=== PATIENT | female | born 1975 | race African-American/Black ===

== ENCOUNTER 2020-01-04 17:20 | Inpatient (IN) | payer OTHER ==
[~2020-01-04] VITALS: Ht 172.7 cm; Wt 117.5 kg
[2020-01-04] MEDS ORDERED: ALBUTEROL2.5 MG/3 M INH (17:41)
--- NOTE | 2020-01-04 17:50 | NUR ---
ED Nurse Note: Pt walked into ED w/ c/o body aches, fever, wheezing, nausea and vomiting. Pt is not currently vomiting. Pt Pt lungs bilaterally iwheezing on exhalation. Pt is alert and orientedx4, ambulatory. Bilateral annkles have numbness.
[2020-01-04 17:52] VITALS: BP 127/71
[2020-01-04] MEDS: Albuterol ud Inhalation HHN SCH ×4 (18:55→19:45)
[2020-01-04 19:05] LABS: BASOPHILS % (AUTO) 0.8 % (0.0-2.0); EOSINOPHILS % (AUTO) 2.3 % (0.0-3.0); HEMATOCRIT 26.6 % (37.0-47.0); MEAN CORPUSCULAR VOLUME 69 FL (80-99); NEUTROPHILS % (AUTO) 81.9 % (45.0-75.0); PLATELET COUNT 485 K/UL (150-450); RED BLOOD COUNT 3.87 M/UL (4.20-5.40); WHITE BLOOD COUNT 7.5 K/UL (4.8-10.8)
[2020-01-04 19:17] LABS: ANION GAP 11 mmol/L (5-15); BLOOD UREA NITROGEN 9 mg/dL (7-18); CALCIUM 8.7 MG/DL (8.5-10.1); CARBON DIOXIDE 26 MMOL/L (21-32); CHLORIDE 102 MMOL/L (98-107); POTASSIUM 3.8 MMOL/L (3.5-5.1); SODIUM 139 MMOL/L (136-145)
[2020-01-04 19:28] LABS: ALANINE AMINOTRANSFERASE 21 U/L (12-78); ALBUMIN 3.9 G/DL (3.4-5.0); ALBUMIN/GLOBULIN RATIO 1.1 (1.0-2.7); ALKALINE PHOSPHATASE 102 U/L (46-116); ASPARTATE AMINO TRANSFERASE 15 U/L (15-37); BILIRUBIN,TOTAL 0.3 MG/DL (0.2-1.0)
--- NOTE | 2020-01-04 19:28 | NUR ---
ED Nurse Note: Received report from GRICEL Torres.
--- NOTE | 2020-01-04 19:35 | Emergency Room Report ---
History of Present Illness General Chief Complaint: Flu Like Symptoms Source: Patient Present Illness HPI 44-year-old female presents to the emergency department complaining of severe generalized weakness/fatigue, dyspnea, wheezing, fevers, chills and headache x2 days. Patient reports history of asthma states she has been using her albuterol inhaler with no relief and she is now out of that medication. Patient also reports today she began having paresthesias in the bilateral feet specifically the ankles which prompted her to come to the ER. She states she did not take any Tylenol, Motrin, ibuprofen, Advil or any other fever reducing medications prior to arrival. Patient states that she did not receive this years flu vaccine. Patient reports she had similar symptoms last year and was hospitalized for 14 days. She denies any other medical problems other than asthma. She is unable to detail specifically why she was hospitalized for 14 days. She denies nausea vomiting, abdominal pain or tenderness. She reports history of anemia and at one point had hemoglobin of 6 for which she refused having transfusion for. Patient states she was taking iron supplementation for a while but self DC'd. She denies neck pain/stiffness, photophobia or sudden onset of her headache. She reports she has been around other ill contacts with similar upper respiratory symptoms but not to this extent. Allergies: Coded Allergies: No Known Allergies (Unverified , 01/04/20) Patient History Past Medical History: see triage record, asthma Past Surgical History: none Pertinent Family History: none Last Menstrual Period: Nov, 2019 Now: No : 0 Para: 0 Reviewed Nursing Documentation: PMH: Agreed; PSxH: Agreed Nursing Documentation-PMH Past Medical History: No History, Except For Hx Asthma: Yes Review of Systems All Other Systems: negative except mentioned in HPI Physical Exam Vital Signs Date Time Temp Pulse Resp B/P (MAP) Pulse Ox O2 Delivery O2 Flow Rate FiO2 01/04/20 17:37 99.9 119 17 123/74 (90) 96 Room Air 01/04/20 17:52 96 Sp02 EP Interpretation: reviewed, normal General Appearance: alert, GCS 15, non-toxic, mild distress Head: normocephalic, atraumatic Eyes: bilateral eye normal inspection, bilateral eye PERRL ENT: hearing grossly normal, normal voice Neck: full range of motion Respiratory: chest non-tender, no accessory muscle use, speaking full sentences , wheezing - auditory Cardiovascular #1: regular rate, rhythm, no edema Cardiovascular #2: 2+ dorsalis pedis (R), 2+ dorsalis pedis (L) Gastrointestinal: non tender, soft Musculoskeletal: normal range of motion, gait/station normal, non-tender Neurologic: alert, motor strength/tone normal, oriented x3, sensory intact, responsive, speech normal Psychiatric: judgement/insight normal Skin: normal color Lymphatic: no adenopathy Medical Decision Making PA Attestation Dr. Murillo is my supervising Physician whom patient management has been discussed with. Diagnostic Impression: Primary Impression: Asthma exacerbation Qualified Codes: J45.41 - Moderate persistent asthma with (acute) exacerbation Additional Impressions: Acute viral syndrome Influenza A Anemia Qualified Codes: D64.9 - Anemia, unspecified ER Course 44-year-old female presents to the emergency department complaining of severe generalized weakness/fatigue, dyspnea, wheezing, fevers, chills and headache x2 days. Patient reports history of asthma states she has been using her albuterol inhaler with no relief and she is now out of that medication. Patient also reports today she began having paresthesias in the bilateral feet specifically the ankles which prompted her to come to the ER. She states she did not take any Tylenol, Motrin, ibuprofen, Advil or any other fever reducing medications prior to arrival. Patient states that she did not receive this years flu vaccine. Patient reports she had similar symptoms last year and was hospitalized for 14 days. She denies any other medical problems other than asthma. She is unable to detail specifically why she was hospitalized for 14 days. She denies nausea vomiting, abdominal pain or tenderness. She reports history of anemia and at one point had hemoglobin of 6 for which she refused having transfusion for. Patient states she was taking iron supplementation for a while but self DC'd. She denies neck pain/stiffness, photophobia or sudden onset of her headache. She reports she has been around other ill contacts with similar upper respiratory symptoms but not to this extent. Ddx considered but are not limited to asthma exacerbation, CHF, URI, pneumonia, PE, strep pharyngitis, Viral syndrome, meningitis. Vital signs: Pt. is tachycardic and febrile. H&PE are most consistent with URI, asthma exacerbation ORDERS: -CBC: hgb 8, thrombocytopenia -CMP: WNL -Troponin: 0.00 WNL -D-Dimer: elevated 0.78 - Influenza A & B : POSITIVE FOR TYPE A CXR: WNL -CTA Chest: " normal appearance aorta, no infiltrates or effusions, study not optimized for evaluation of all pulmonary arteries. No central filling defects however the possibility of small peripheral pulmonary emboli cannot be excluded. " Per official radiology report- Please see report for specific details. ED INTERVENTIONS: -1 Liter NS Bolus - Tylenol PO -Motrin PO Albuterol nebulized treatment x 4 - re-examination post nebulized treatment: Pt. still with auditory wheezes. DISPOSITION: at this time pt. will be admitted to Dr. Arguello for Asthma Exacerbation Dr. Arguello agreed to admit the pt. and to continue pt. care management. EKG Diagnostic Results EP Interpretation: Dr. Murillo Rate: tachycardiac - 100 Rhythm: NSR ST Segments: no acute changes ASA given to the pt in ED: No PA Scribe Text This Interpretation was scribed by ANDREW Fuentes. Chest X-Ray Diagnostic Results Chest X-Ray Diagnostic Results : Chest X-Ray Ordered: Yes # of Views/Limited/Complete: 1 View Indication: Shortness of Breath EP Interpretation: Yes PA Xray: Interpretation reviewed, by supervising MD, and agrees with findings. Interpretation: no consolidation, no effusion, no pneumothorax, no acute cardiopulmonary disease Impression: No acute disease Electronically Signed by: Marcella Fuentes PA-C CT/MRI/US Diagnostic Results CT/MRI/US Diagnostic Results : Imaging Test Ordered: CTA Chest w. contrast Impression " normal appearance aorta, no infiltrates or effusions, study not optimized for evaluation of all pulmonary arteries. No central filling defects however the possibility of small peripheral pulmonary emboli cannot be excluded." Per official radiology report- Please see report for specific details. Last Vital Signs Date Time Temp Pulse Resp B/P (MAP) Pulse Ox O2 Delivery O2 Flow Rate FiO2 01/04/20 19:02 98 20 98 Room Air 21 01/04/20 17:52 99.9 127/71 Disposition: ADMITTED INPATIENT Condition: Serious Referrals: [facility],REFERRING (PCP) Marcella Fuentes Jan 04, 2020 19:35
[2020-01-04] MEDS ORDERED: Omnipaque 350 100ml vial INJ PRN (19:45)
--- NOTE | 2020-01-04 19:49 | NUR ---
ED Nurse Note: Patient taken to CT in stable condition
--- NOTE | 2020-01-04 19:51 | Diagnostic Imaging Report ---
EXAM: XR Chest, 1 View CLINICAL HISTORY: PAIN TECHNIQUE: Frontal view of the chest. COMPARISON: No relevant prior studies available. FINDINGS: Lungs: Unremarkable. No consolidation. Pleural space: Unremarkable. No pneumothorax. Heart: Unremarkable. No cardiomegaly. Mediastinum: Unremarkable. Bones/joints: Unremarkable. IMPRESSION: Normal chest x-ray.
[2020-01-04 20:07] VITALS: BP 126/69
--- NOTE | 2020-01-04 20:07 | NUR ---
ED Nurse Note: Pt moved to bed 01; report received from GRICEL Miranda. All medications, lab work, and US complete; pending results. Pt HR elevated (129) BP 126/68. NO s/s of distress noted.
--- NOTE | 2020-01-04 20:07 | NUR ---
HAND-OFF: Report given to GRICEL Andrade.
--- NOTE | 2020-01-04 21:10 | Diagnostic Imaging Report ---
EXAM: CT Angiography Chest With Intravenous Contrast CLINICAL HISTORY: SOB TECHNIQUE: Axial computed tomographic angiography images of the chest with intravenous contrast. CTDI is 198.7 mGy and DLP is 1419.5 mGy-cm. One or more of the following dose reduction techniques were used: automated exposure control, adjustment of the mA and/or kV according to patient size, use of iterative reconstruction technique. MIP reconstructed images were created and reviewed. Coronal and sagittal reformatted images were created and reviewed. COMPARISON: No relevant prior studies available. FINDINGS: Pulmonary arteries: The study is not optimized for evaluation of pulmonary arteries no central filling defects are noted possibility of small distal pulmonary emboli cannot be excluded on this study Aorta: No acute findings. No thoracic aortic aneurysm. Lungs: Unremarkable. No mass. No consolidation. Pleural space: Unremarkable. No significant effusion. No pneumothorax. Heart: Unremarkable. No cardiomegaly. No significant pericardial effusion. No evidence of RV dysfunction. Bones/joints: No acute fracture. No dislocation. Soft tissues: Unremarkable. Lymph nodes: Unremarkable. No enlarged lymph nodes. IMPRESSION: Normal appearance to the aorta. No infiltrates or effusions. The study is not optimized for evaluation of pulmonary arteries. No central filling defects however the possibility of small peripheral pulmonary emboli cannot be excluded
[2020-01-04] MEDS ORDERED: Albuterol/Ipratropium 3ml neb HHN ONE (22:00)
--- NOTE | 2020-01-04 22:02 | NUR ---
Spoke with Sunshine at [facility]-states admit Tele OBS-registration notified.
[2020-01-04] MEDS ORDERED: Tubing IV Secondary IV ONE (22:03)
--- NOTE | 2020-01-04 22:15 | NUR ---
ED Nurse Note: Pt resting in bed, VSS no s/s of distress noted. Pt resting comfortably.
[2020-01-04 22:25] VITALS: BP 124/72
--- NOTE | 2020-01-04 23:07 | NUR ---
ED Nurse Note: report given to Shannon, Telemetry unit.
[2020-01-04 23:15] VITALS: BP 125/67
--- NOTE | 2020-01-04 23:15 | NUR ---
ER DISCHARGE NOTE: Patient is cleared to be discharged to Telemetry unit per ERMD, pt is aox4, on room air, with stable vital signs. pt was able to verbalize understanding, pt took all belongings. No s/s of distress noted. Pt transferred to telemetry unit with public address technician and RN on monitor, handoff to GRICEL Cartagena.
--- NOTE | 2020-01-04 23:24 | NUR ---
ED Nurse Note: Pt belongings list completed
[2020-01-04 23:40] VITALS: BP 133/63
--- NOTE | 2020-01-04 23:40 | NUR ---
NURSE NOTES: Received report from GRICEL Monique ED. Patient was transferred from ED to Tele via gurney accompanied by 2 staff member, without any incident. Patient is awake, A/Ox4, able to make needs known. Denies pain at this time. No signs of acute distress noted. Placed on tele box, ST on the monitor, 112 bpm. Checked IV site and flushed. No erythema, bleeding or infiltration noted. Body assessment done without any skin issues. Bed at lowest position, brakes on, siderailsx2. Belongings list checked with transferring RN. Patient has bills $20 x 1, $5 x 1, $1 x 3. Patient doesn't want her money to be placed on hospital's safety box. CN and fire supervisor made aware. Call light within reach. Will continue to monitor.
[2020-01-05] MEDS ORDERED: Albuterol ud Inhalation HHN PRN (00:15)
--- NOTE | 2020-01-05 00:15 | NUR ---
NURSE NOTES: Received admitting orders from Dr. Arguello. Noted and carried out.
[2020-01-05] MEDS ORDERED: cefTRIAXone 1 GM in D5W 55 ML IVPB SCH (02:00)
--- NOTE | 2020-01-05 02:51 | NUR ---
NURSE NOTES: Resting throughout the night. No significant change of condition noted. Will continue to monitor.
[2020-01-05] MEDS: Albuterol/Ipratropium 3ml neb HHN SCH ×6 (03:24→23:47)
[2020-01-05 04:00] VITALS: BP 113/66
--- NOTE | 2020-01-05 05:52 | NUR ---
NURSE NOTES: Notified Dr. Arguello of patient's (+) for Influenza A. Addendum: 01/05/20 at 0556 by Mitzi Pate RN Placed on droplet isolation. Charge nurse made aware.
--- NOTE | 2020-01-05 07:10 | NUR ---
HAND-OFF: Report given to GRICEL Murillo. Plan of care endorsed.
[2020-01-05 08:00] VITALS: BP 126/89
[2020-01-05] MEDS ORDERED: Solu-MEDROL 40mg Inj IVP SCH (09:00)
[2020-01-05] MEDS: Oseltamivir 75mg cap ORAL SCH ×2 (11:12→18:49)
--- NOTE | 2020-01-05 14:00 | Infectious Diseases Prog Note ---
Assessment/Plan Problems: (1) Influenza A Assessment & Plan: continue tamiflu for five days with droplets isolation (2) Bronchitis with acute wheezing Assessment & Plan: will continue ceftriaxone and add vancomycin pending cultures for now , and order sputum culture (3) Sepsis Assessment & Plan: with high fever, suspect due to the above, on vancomycin and ceftriaxone pending cultures (4) Asthma exacerbation Assessment & Plan: due to the above, continue nebulizers and oxygen , stop steroids Subjective Allergies: Coded Allergies: No Known Allergies (Unverified , 01/04/20) Objective Vital Signs Last 24 Hour Vital Signs Date Time Temp Pulse Resp B/P (MAP) Pulse Ox O2 Delivery O2 Flow Rate FiO2 01/05/20 12:00 117 01/05/20 11:45 85 20 99 Nasal Cannula 2.0 28 82 20 99 01/05/20 08:13 83 20 100 Nasal Cannula 2.0 28 85 20 100 01/05/20 08:00 80 01/05/20 08:00 97.3 91 16 126/89 (101) 100 01/05/20 04:00 76 01/05/20 04:00 97.3 65 20 113/66 (82) 100 01/05/20 03:24 76 18 99 Nasal Cannula 2.0 28 73 18 97 01/05/20 00:53 Room Air 01/05/20 00:00 146 01/04/20 23:40 112 01/04/20 23:40 99.5 111 21 133/63 (86) 99 01/04/20 23:15 101.1 110 20 125/67 100 Room Air 21 01/04/20 23:15 101.1 110 22 125/67 100 Room Air 21 01/04/20 22:25 101.7 115 22 124/72 100 Room Air 21 01/04/20 22:16 112 22 100 01/04/20 22:04 105 21 100 Room Air 21 01/04/20 21:49 101.7 01/04/20 21:49 101.7 01/04/20 20:07 99.9 126 20 126/69 100 Room Air 21 01/04/20 19:45 132 20 100 01/04/20 19:02 98 20 98 Room Air 21 01/04/20 17:52 121 18 Room Air 96 01/04/20 17:52 99.9 20 127/71 95 Room Air 01/04/20 17:37 99.9 119 17 123/74 (90) 96 Room Air Height (Feet): 5 Height (Inches): 8.00 Weight (Pounds): 259 Microbiology Date/Time Source Procedure Growth Status 01/04/20 22:09 Nasal Nares - Final Complete 01/04/20 22:09 Nasal Nares - Final Complete Laboratory Tests Test 01/04/20 18:49 White Blood Count 7.5 K/UL (4.8-10.8) Red Blood Count 3.87 M/UL (4.20-5.40) L Hemoglobin 8.0 G/DL (12.0-16.0) L Hematocrit 26.6 % (37.0-47.0) L Mean Corpuscular Volume 69 FL (80-99) L Mean Corpuscular Hemoglobin 20.7 PG (27.0-31.0) L Mean Corpuscular Hemoglobin Concent 30.2 G/DL (32.0-36.0) L Red Cell Distribution Width 17.0 % (11.6-14.8) H Platelet Count 485 K/UL (150-450) H Mean Platelet Volume 6.7 FL (6.5-10.1) Neutrophils (%) (Auto) 81.9 % (45.0-75.0) H Lymphocytes (%) (Auto) 9.0 % (20.0-45.0) L Monocytes (%) (Auto) 6.0 % (1.0-10.0) Eosinophils (%) (Auto) 2.3 % (0.0-3.0) Basophils (%) (Auto) 0.8 % (0.0-2.0) D-Dimer 0.78 mg/L FEU (0.00-0.49) H Sodium Level 139 MMOL/L (136-145) Potassium Level 3.8 MMOL/L (3.5-5.1) Chloride Level 102 MMOL/L (98-107) Carbon Dioxide Level 26 MMOL/L (21-32) Anion Gap 11 mmol/L (5-15) Blood Urea Nitrogen 9 mg/dL (7-18) Creatinine 1.0 MG/DL (0.55-1.30) Estimat Glomerular Filtration Rate > 60 mL/min (>60) Glucose Level 119 MG/DL (74-106) H Calcium Level 8.7 MG/DL (8.5-10.1) Total Bilirubin 0.3 MG/DL (0.2-1.0) Aspartate Amino Transf (AST/SGOT) 15 U/L (15-37) Alanine Aminotransferase (ALT/SGPT) 21 U/L (12-78) Alkaline Phosphatase 102 U/L (46-116) Troponin I 0.000 ng/mL (0.000-0.056) Pro-B-Type Natriuretic Peptide 116 pg/mL (0-125) Total Protein 7.6 G/DL (6.4-8.2) Albumin 3.9 G/DL (3.4-5.0) Globulin 3.7 g/dL Albumin/Globulin Ratio 1.1 (1.0-2.7) Current Medications Medications (Trade) Dose Ordered Sig/Roman Route PRN Reason Start Time Stop Time Status Last Admin Dose Admin Acetaminophen (Tylenol) 650 mg Q4H PRN ORAL Mild Pain/Temp > 100.5 01/05/20 00:15 02/04/20 00:14 Albuterol Sulfate (Proventil) 2.5 mg Q4H PRN HHN Shortness of Breath 01/05/20 00:15 01/10/20 00:14 Albuterol/ Ipratropium (Albuterol/ Ipratropium) 3 ml Q4HRT HHN 01/05/20 03:00 01/10/20 02:59 01/05/20 11:45 Iohexol (Omnipaque) 100 mg NOW PRN INJ Radiology Procedure 01/04/20 19:45 01/06/20 19:35 Oseltamivir Phosphate (Tamiflu) 75 mg TWICE A DAY ORAL 01/05/20 10:15 01/10/20 10:14 01/05/20 11:12 Kirsten Benedict M.D. Jan 05, 2020 14:00
[2020-01-05] MEDS ORDERED: Vancomycin 1.5gm/NS Premix IVPB ONE (15:00)
--- NOTE | 2020-01-05 15:15 | History and Physical Report ---
DATE OF ADMISSION: 01/04/2020 HISTORY OF PRESENT ILLNESS: This is a 44-year-old female overweight came to the emergency room for having short of breath, fever and chills for about last 4 to 5 days and the patient was having cough with mucus production, also had fever at home. The patient was found to have influenza positive. The patient is currently still having cough, but is improving. PAST MEDICAL HISTORY: Asthma, comorbid obesity. MEDICATIONS: Albuterol inhaler. ALLERGIES: NKA. FAMILY HISTORY: Noncontributory. SOCIAL HISTORY: Lives at home. Denies any smoking. She quit smoking about 2 years ago. Denies any illegal drugs. REVIEW OF SYSTEMS: Generalized weakness, tired, fatigue, cough with sputum production, mild to moderate short of breath on exertion, and weight gain. PHYSICAL EXAMINATION: VITAL SIGNS: Blood pressure is , pulse 91, respirations 16, saturation 100%, temperature 97.3. HEENT: AT/NC. EOMI. PERRLA. NECK: Supple. No JVD. CHEST: Bilateral few crackles. CARDIOVASCULAR: Regular rhythm. No gallop. No murmur. ABDOMEN: Soft. Positive bowel sounds. EXTREMITIES: No edema. GENITOURINARY: Deferred. LABORATORY AND DIAGNOSTIC DATA: White count 7.5, hemoglobin 8, hematocrit 29, platelets are 485,000. Chemistry panel, sodium 139, potassium 3.8, BUN 9, creatinine 0.1. Troponins are negative. BNP was 116. Cultures are so far pending. CT of chest is negative for PE. Chest x-ray normal. ASSESSMENT: 1. Acute chronic obstructive pulmonary disease exacerbation. 2. H. influenza. PLAN: Admit on telemetry bed. Start IV antibiotics, IV steroid, bronchodilator treatments, and also add Tamiflu. Continue DuoNeb. Discussed with charge nurse. Consider Pulmonary consult. Edmundo Arguello M.D. DR: Desire JOB#: [id number] CC:
[2020-01-05] MEDS: cefTRIAXone 2 GM in D5W 55 ML IVPB SCH (16:28)
--- NOTE | 2020-01-05 16:45 | Consultation ---
DATE OF CONSULTATION: 01/05/2020 INFECTIOUS DISEASES CONSULTATION CONSULTING PHYSICIAN: Khai Bravo M.D. PRIMARY ATTENDING PHYSICIAN: Edmundo Arguello AM.D. REASON FOR CONSULTATION: Sepsis and influenza A. HISTORY OF PRESENT ILLNESS: The patient is a 44-year-old female admitted last night because of weakness, fever, fatigue, difficulty of breathing, chills, headache for two days. The symptoms become progressively worse. The patient had fever up to 101.7 in hospital and heart rate up to 146. PAST MEDICAL HISTORY: Anemia for long time, asthma, obesity. The patient has a history of admission to hospital two years ago for asthma. PAST SURGICAL HISTORY: Had . ALLERGIES: No known drug allergies. MEDICATIONS: Tamiflu, methylprednisone, albuterol ipratropium inhaler, ceftriaxone. SOCIAL HISTORY: Single, has two children. Does not smoke. Does not drink. No IV drug abuse. REVIEW OF SYSTEMS: Fever, chills, shortness of breath, coughing, body pain, fatigue. No nausea. No vomiting. No problem passing urine. PHYSICAL EXAMINATION: VITAL SIGNS: Current temperature 97.3, pulse 83, blood pressure 126/89. GENERAL APPEARANCE: The patient is well developed, obese. HEAD AND NECK: [place] conjunctivae. Getting oxygen by nasal cannula. HEART: Normal rate. LUNGS: Bilateral wheezing. ABDOMEN: Soft and nontender. EXTREMITIES: No edema. NEUROLOGIC: Awake, alert, oriented x3. LABORATORY AND DIAGNOSTIC DATA: WBC 7.5, hemoglobin 8, hematocrit 26.6, and platelets is 485. Sodium 139, potassium 3.8, chloride 102, bicarbonate 26, BUN 19, creatinine 1, glucose 119. LFTs within normal limits. Influenza A was positive. Chest x-ray was normal. CT angiogram of the chest showed no pulmonary emboli, no effusion or infiltrate. IMPRESSION: Sepsis with fever and tachycardia, seems to have influenza A, upper respiratory infection, asthma exacerbation, anemia, obesity. RECOMMENDATION: Continue Tamiflu and ceftriaxone. If the patient remain stable, stop ceftriaxone soon. At the time of discharge, we will give the patient influenza vaccination and pneumococcal vaccination. At the end of my exam, I thank Dr. Arguello, for involving me in the care of this patient. Khai Bravo M.D. DR: Marisol JOB#: [id number] CC:
--- NOTE | 2020-01-05 17:45 | Consultation ---
DATE OF CONSULTATION: 01/05/2020 PULMONARY CONSULTATION CONSULTING PHYSICIAN: Ferny Mazariegos M.D. HISTORY OF PRESENT ILLNESS: This is a 44-year-old female who came to the hospital with cough, wheezing, shortness of breath, and headache. The patient has a history of asthma, however, not on medications. The patient has not received flu vaccine. She is admitted to the hospital for exacerbation of asthma. PAST MEDICAL HISTORY: Asthma. PAST SURGICAL HISTORY: None. HOME MEDICATIONS/CURRENT MEDICATIONS: Include Rocephin, DuoNebs, Motrin, Solu-Medrol, and Tamiflu. ALLERGIES: None reported. REVIEW OF SYSTEMS: Denies any headaches, hematemesis, melena, or hematochezia. PHYSICAL EXAMINATION: GENERAL: Reveals an obese 44-year-old female. VITAL SIGNS: O2 saturation 99% on 2 L of oxygen, blood pressure 120/80, heart rate 94. She is afebrile HEENT: Unremarkable. CHEST: Shows a few rhonchi bilaterally. ABDOMEN: Soft. EXTREMITIES: There is no edema. LABORATORY TESTING: Shows normal CBC except for hemoglobin of 8. Chemistries are normal. Troponin negative. Coags negative. CT of the chest was obtained, which shows clear lung alexander bilaterally. There was no major PE is noted. X-ray chest was also obtained, which showed clear lung alexander bilaterally. IMPRESSION: 1. Acute influenza, bronchitis. 2. Asthma. DISCUSSION: Agree with steroids, empiric antibiotics, and Tamiflu. Order oxygen. We will follow carefully. Ferny Mazariegos M.D. DR: DARREN JOB#: [id number] CC:
--- NOTE | 2020-01-05 19:15 | NUR ---
NURSE NOTES: Received report from GRICEL Johns. Patient is awake, lying in zaman's; resting comfortably. A/Ox4. Able to make needs known. Denies pain at this time. No signs of acute distress noted. Checked IV site and flushed. No erythema, bleeding or infiltration noted. Bed at lowest position, brakes on, siderailsx2. Call light within reach. Will continue to monitor.
--- NOTE | 2020-01-05 19:52 | NUR ---
HAND-OFF: Report given to GRICEL Cartagena. Patient sitting up in bed, awake and alert, watching television, no c/o pain, no SOB, oxygen at 2 liters nasal cannula, bed in lowest position, call light within reach, IV patent in left antecubital 20 gauge running antibiotics.
[2020-01-05 20:00] VITALS: BP 118/68
--- NOTE | 2020-01-05 20:00 | Consultation ---
DATE OF CONSULTATION: 01/05/2020 INFECTIOUS DISEASE CONSULTATION CONSULTING PHYSICIAN: Kirsten Benedict M.D. REFERRING PHYSICIAN: Melvin Arguello M.D. REASON FOR CONSULTATION: Influenza A infection with bronchitis and possible sepsis. Recommendation for antibiotics treatment. HISTORY OF PRESENT ILLNESS: The patient is a 44-year-old female with past medical history of asthma, presented to the emergency room at [facility] for fever, cough, generalized weakness, wheezing, and chills for the last two days. The patient's symptoms started with fatigue and generalized weakness then chills. She had dry cough first then became productive of greenish phlegm. Her asthma kicked in after that and she was having more wheezing and shortness of breath. She utilized all of her albuterol inhaler at home with no significant improvement. She was getting numbness also on her feet, so she was brought into the emergency room for further evaluation. The patient was found to be febrile with temperature of 101. She was tachypneic and wheezing, received nebulizer treatment and steroid IV, and she tested positive for influenza A, so she was subsequently started on Tamiflu and ceftriaxone by the admitting physician with IV steroid, and Infectious Disease consultation was requested for antibiotics treatment and further management. The patient denied any recent travel or sick contacts over the last 14 days. REVIEW OF SYSTEMS: A 14-point of systems reviewed were all negative apart from the one I mentioned above in my History and Physical. PAST MEDICAL HISTORY: Significant for asthma. PAST SURGICAL HISTORY: Negative. SOCIAL HISTORY: The patient lives at home with family. Denied using any drugs, tobacco, or alcohol. She is a former smoker. ALLERGIES: She has no known drug allergies. MEDICATIONS: Currently, she is on Tamiflu, ceftriaxone, and IV methylprednisolone. For the rest of her medications, please refer to MAR. PHYSICAL EXAMINATION: VITAL SIGNS: Temperature 97.3, pulse 91, respirations 16, and blood pressure 126/89. Saturation 100% on nasal cannula 2 L. GENERAL: Young female, morbidly obese, lying in bed, awake, alert, and oriented x3, not in acute distress. HEENT: Normocephalic and atraumatic. Pupils are reactive to light equally. Moist oral mucosa. No exudate or thrush. Congested throat. NECK: Supple. No lymphadenopathy. CARDIOVASCULAR: Regular rate and rhythm. No murmur or gallop. LUNGS: She had diffuse wheezing and diminished breathing sound on both lung alexander. ABDOMEN: Soft, obese, nontender, and nondistended. Normal bowel sounds. No hepatosplenomegaly or ascites. EXTREMITIES: No edema or cyanosis. LABORATORY DATA: Showed white count of 7.5, hemoglobin of 8, and platelet count of 485,000. BUN of 9, creatinine of 1. AST of 15, ALT of 21. MICROBIOLOGY: Influenza A screening was positive. IMAGING: Chest x-ray showed normal findings. Chest angiogram showed normal appearance to the aorta. No infiltrate or effusion. No central filling defect. ASSESSMENT AND RECOMMENDATION: 1. Influenza A infection. Continue Tamiflu for five days with droplet isolation. The patient was advised to receive vaccination from now on in the future to prevent infection like that since she has asthma and never received influenza vaccine last year. 2. Bronchitis with acute wheezing, possible underlying pneumonia. Continue ceftriaxone with higher dose and add vancomycin pending blood cultures and we will send sputum culture on top. 3. Sepsis with high fever suspect due to the above, on vancomycin and ceftriaxone now pending culture. We will send blood culture x2 and sputum culture. 4. Asthma exacerbation due to the above. Continue nebulizer and oxygen with wide spectrum antibiotics. Stop steroids due to influenza A infection. Thank you for the consult. ID will continue to follow. Kirsten Benedict M.D. DR: ZOHAIB JOB#: [id number] CC:
[2020-01-05] MEDS: Acetylcysteine 20% Soln 4ml ORAL SCH (21:12)
[2020-01-05] MEDS: Vancomycin 750mg/NS 275ml IVPB SCH ×2 (22:05)
[2020-01-06] VITALS: BP 112/50
--- NOTE | 2020-01-06 01:08 | NUR ---
NURSE NOTES: Resting throughout the night. No significant change of condition noted. Will continue to monitor.
[2020-01-06] MEDS: Albuterol/Ipratropium 3ml neb HHN SCH ×5 (03:49→19:25)
[2020-01-06] MEDS: Vancomycin 750mg/NS 275ml IVPB SCH ×2 (06:07)
--- NOTE | 2020-01-06 07:20 | NUR ---
HAND-OFF: Report given to GRICEL Orona. Plan of care endorsed.
--- NOTE | 2020-01-06 07:20 | NUR ---
NURSE NOTES: Received report from Mitzi MONSALVE. Patient in bed awake and orientedx4 and able to make needs known. No c/o pain. Denied SOB. On room air. IV site in LAC 20G SL patent and asymptomatic. Observed good droplet isolation. Bed in lowest position and locked. Side raisx2 for safety. Call light within easy reach. Will continue to plan of care.
[2020-01-06 07:57] VITALS: BP 132/70
[2020-01-06] MEDS: Acetylcysteine 20% Soln 4ml ORAL SCH (09:00)
[2020-01-06] MEDS: Oseltamivir 75mg cap ORAL SCH ×2 (09:37→18:03)
[2020-01-06] MEDS: cefTRIAXone 2 GM in D5W 55 ML IVPB SCH (09:38)
--- NOTE | 2020-01-06 10:32 | Infectious Diseases Prog Note ---
Assessment/Plan Assessment/Plan IMPRESSION: Sepsis with fever and tachycardia, Influenza A upper respiratory infection, asthma exacerbation, anemia, obesity. RECOMMENDATION: Continue Tamiflu and ceftriaxone. Discontinue IV Vancomycin At the time of discharge, we will give the patient influenza vaccination and pneumococcal vaccination. Subjective ROS Limited/Unobtainable: No Constitutional: Reports: other - feels better; Denies: fever Respiratory: Reports: productive cough Cardiovascular: Reports: no symptoms Gastrointestinal/Abdominal: Reports: no symptoms Genitourinary: Reports: no symptoms Musculoskeletal: Reports: no symptoms Allergies: Coded Allergies: No Known Allergies (Unverified , 01/04/20) Objective Vital Signs Last 24 Hour Vital Signs Date Time Temp Pulse Resp B/P (MAP) Pulse Ox O2 Delivery O2 Flow Rate FiO2 01/06/20 07:57 98.4 94 18 132/70 (90) 98 01/06/20 07:51 83 20 100 Room Air 21 87 20 97 01/06/20 04:00 82 01/06/20 03:59 77 20 99 Room Air 21 01/06/20 03:49 77 20 99 Room Air 21 01/06/20 00:00 78 01/06/20 00:00 97.9 97 18 112/50 (70) 97 01/05/20 23:57 76 20 99 Room Air 21 01/05/20 23:47 74 20 99 Room Air 21 01/05/20 21:00 Room Air 01/05/20 20:10 88 20 99 Room Air 21 01/05/20 20:00 98.4 80 20 118/68 (85) 100 01/05/20 20:00 88 20 98 Room Air 21 01/05/20 20:00 84 01/05/20 16:00 80 01/05/20 15:54 Nasal Cannula 2.0 01/05/20 15:34 87 20 100 Nasal Cannula 2.0 28 84 20 99 01/05/20 12:00 117 01/05/20 11:45 85 20 99 Nasal Cannula 2.0 28 82 20 99 Height (Feet): 5 Height (Inches): 8.00 Weight (Pounds): 259 General Appearance: no acute distress HEENT: mucous membranes moist Respiratory/Chest: lungs clear Cardiovascular: normal rate Abdomen: soft, non tender Extremities: no edema Neurologic/Psychiatric: alert, oriented x 3, responsive Microbiology Date/Time Source Procedure Growth Status 01/04/20 22:09 Nasal Nares - Final Complete 01/04/20 22:09 Nasal Nares - Final Complete Current Medications Medications (Trade) Dose Ordered Sig/Roman Route PRN Reason Start Time Stop Time Status Last Admin Dose Admin Acetaminophen (Tylenol) 650 mg Q4H PRN ORAL Mild Pain/Temp > 100.5 01/05/20 00:15 02/04/20 00:14 Albuterol Sulfate (Proventil) 2.5 mg Q4H PRN HHN Shortness of Breath 01/05/20 00:15 01/10/20 00:14 Albuterol/ Ipratropium (Albuterol/ Ipratropium) 3 ml Q4HRT HHN 01/05/20 03:00 01/10/20 02:59 01/06/20 07:51 Ceftriaxone Sodium 2 gm/ Dextrose 55 ml @ 110 mls/hr DAILY IVPB 01/05/20 15:00 01/12/20 14:59 01/06/20 09:38 Iohexol (Omnipaque) 100 mg NOW PRN INJ Radiology Procedure 01/04/20 19:45 01/06/20 19:35 Oseltamivir Phosphate (Tamiflu) 75 mg TWICE A DAY ORAL 01/05/20 10:15 01/10/20 10:14 01/06/20 09:37 Vancomycin HCl (Vanco rx to dose) 1 ea DAILY PRN MISC Per rx protocol 01/05/20 14:15 02/04/20 14:14 Vancomycin HCl 750 mg/Sodium Chloride 275 ml @ 183.333 mls/hr Q8H IVPB 01/05/20 23:00 01/10/20 22:59 01/06/20 06:07 Khai Bravo MD Jan 06, 2020 10:32
[2020-01-06 12:00] VITALS: BP 128/78
--- NOTE | 2020-01-06 13:52 | NUR ---
CASE MANAGEMENT:REVIEW 44 YR OLD FEMALE WALKED IN TO ER CC: WEAKNESS,COUGHING, CHILLS, WHEEZING, N/V AND BILATERAL ANKLE NUMBNESS/PAIN SI: ASTHMA EXACERBATION. ANEMIA ACUTE VIRAL SYNDROME. 101.7 119 17 123/74 96% ON RA h/h-8.0/26.6 IS: ALBUTEROL HHN Q15MIN 1L NS BOLUS TYLENOL PO IBUPROFEN PO CTA CHEST W/CONTRAST CHEST XRAY : TO TELEMETRY DCP: FROM HOME
--- NOTE | 2020-01-06 15:30 | Progress Note ---
DATE: 01/06/2020 SUBJECTIVE: This is a 44-year-old female, currently having cough, but feeling better. OBJECTIVE: VITAL SIGNS: Blood pressure 132/70, pulse 94, no fever, saturation 98%. HEENT: NAD. CHEST: Few crackles and wheezing. CARDIOVASCULAR: Regular rhythm. ABDOMEN: Soft. EXTREMITIES: CCE. NEUROLOGICAL: No focal deficit. ASSESSMENT: 1. Acute asthma. 2. Anemia. 3. Obesity. RECOMMENDATIONS: Lose weight. Continue current treatment. Monitor hemoglobin and hematocrit. May continue steroid antibiotic, bronchodilator treatments. Edmundo Arguello M.D. DR: TREVA JOB#: [id number] CC:
--- NOTE | 2020-01-06 15:41 | Pulmonology Progress Note ---
Assessment/Plan Assessment/Plan IMPRESSION: 1. Acute influenza, bronchitis. 2. Asthma. DISCUSSION: Agree with steroids, empiric antibiotics, and Tamiflu. Continue oxygen. I will follow carefully. Ferny Mazariegos M.D. Subjective Interval Events: None new; feeling better Constitutional: Reports: no symptoms HEENT: Repors: no symptoms Respiratory: Reports: no symptoms Cardiovascular: Reports: no symptoms Gastrointestinal/Abdominal: Reports: no symptoms Allergies: Coded Allergies: No Known Allergies (Unverified , 01/04/20) Objective Last 24 Hour Vital Signs Date Time Temp Pulse Resp B/P (MAP) Pulse Ox O2 Delivery O2 Flow Rate FiO2 01/06/20 15:40 84 18 100 Room Air 21 83 18 100 01/06/20 12:00 97.7 98 18 128/78 (95) 95 01/06/20 12:00 94 01/06/20 10:29 81 20 100 Room Air 21 85 18 99 01/06/20 09:00 Room Air 01/06/20 08:00 83 01/06/20 07:57 98.4 94 18 132/70 (90) 98 01/06/20 07:51 83 20 100 Room Air 21 87 20 97 01/06/20 04:00 82 01/06/20 03:59 77 20 99 Room Air 21 01/06/20 03:49 77 20 99 Room Air 21 01/06/20 00:00 78 01/06/20 00:00 97.9 97 18 112/50 (70) 97 01/05/20 23:57 76 20 99 Room Air 21 01/05/20 23:47 74 20 99 Room Air 21 01/05/20 21:00 Room Air 01/05/20 20:10 88 20 99 Room Air 21 01/05/20 20:00 98.4 80 20 118/68 (85) 100 01/05/20 20:00 88 20 98 Room Air 21 01/05/20 20:00 84 01/05/20 16:00 80 01/05/20 15:54 Nasal Cannula 2.0 Intake and Output 01/05/20 01/06/20 19:00 07:00 Intake Total 772.5 ml Output Total 1500 ml Balance -727.5 ml Intake Oral 520 ml IV Total 252.5 ml Output Urine Total 1500 ml # Voids 5 1 # Bowel Movements 1 General Appearance: no acute distress HEENT: normocephalic Respiratory/Chest: chest wall non-tender Cardiovascular: normal peripheral pulses, normal rate Abdomen: normal bowel sounds Microbiology Date/Time Source Procedure Growth Status 01/05/20 19:00 Sputum Expectorated Gram Stain - Final Resulted 01/05/20 19:00 Sputum Expectorated Sputum Culture Pending Resulted 01/04/20 22:09 Nasal Nares - Final Complete 01/04/20 22:09 Nasal Nares - Final Complete Current Medications Medications (Trade) Dose Ordered Sig/Roman Route PRN Reason Start Time Stop Time Status Last Admin Dose Admin Acetaminophen (Tylenol) 650 mg Q4H PRN ORAL Mild Pain/Temp > 100.5 01/05/20 00:15 02/04/20 00:14 Albuterol Sulfate (Proventil) 2.5 mg Q4H PRN HHN Shortness of Breath 01/05/20 00:15 01/10/20 00:14 Albuterol/ Ipratropium (Albuterol/ Ipratropium) 3 ml Q4HRT HHN 01/05/20 03:00 01/10/20 02:59 01/06/20 15:39 Ceftriaxone Sodium 2 gm/ Dextrose 55 ml @ 110 mls/hr DAILY IVPB 01/05/20 15:00 01/12/20 14:59 01/06/20 09:38 Iohexol (Omnipaque) 100 mg NOW PRN INJ Radiology Procedure 01/04/20 19:45 01/06/20 19:35 Oseltamivir Phosphate (Tamiflu) 75 mg TWICE A DAY ORAL 01/05/20 10:15 01/10/20 10:14 01/06/20 09:37 Ferny Mazariegos MD Jan 06, 2020 15:41
[2020-01-06 16:00] VITALS: BP 111/63
--- NOTE | 2020-01-06 19:20 | NUR ---
NURSE NOTES: Received pt and report from GRICEL Roque. Observed pt resting in bed, on her cell phone, and receiving a breathing tx. Pt is A/Ox4. applications support analyst is in placed; pt is NSR. IV site intact, asymptomatic, and patent. Bed is in the lowest position and locked. Call light and bedside table is within reach. No signs/symptoms of acute distress noted at this time. Will continue plan of care.
--- NOTE | 2020-01-06 19:29 | NUR ---
HAND-OFF: Report given to Shikha RN. Pt remains stable.
[2020-01-06 20:00] VITALS: BP 119/52
[2020-01-07] VITALS: BP 114/69
[2020-01-07] MEDS: Albuterol/Ipratropium 3ml neb HHN SCH ×4 (00:05→11:41)
[2020-01-07 04:00] VITALS: BP 120/69
--- NOTE | 2020-01-07 07:25 | NUR ---
NURSE NOTES: Received pt in bed, AAO x 4. RA. No c/o of pain/distress. IV on LAC 20g noted. Side rails x 2. Bed in the lowest and locked. Call light within reach. Will continue to monitor
--- NOTE | 2020-01-07 07:52 | NUR ---
HAND-OFF: Report given to GRICEL Castro. Plan of care endorsed.
[2020-01-07 08:00] VITALS: BP 110/62
[2020-01-07] MEDS: Oseltamivir 75mg cap ORAL SCH (09:39)
[2020-01-07] MEDS: cefTRIAXone 2 GM in D5W 55 ML IVPB SCH (09:39)
--- NOTE | 2020-01-07 10:07 | Infectious Diseases Prog Note ---
Assessment/Plan Assessment/Plan IMPRESSION: Sepsis with fever and tachycardia, resolving Influenza A upper respiratory infection, asthma exacerbation, anemia, obesity. RECOMMENDATION: Continue Tamiflu . Discontinue ceftriaxone. Consider steroids At the time of discharge, we will give the patient influenza vaccination and pneumococcal vaccination. Subjective ROS Limited/Unobtainable: No Constitutional: Reports: no symptoms Respiratory: Reports: shortness of breath, other - wheezing in am Gastrointestinal/Abdominal: Reports: no symptoms Genitourinary: Reports: no symptoms Allergies: Coded Allergies: No Known Allergies (Unverified , 01/04/20) Objective Vital Signs Last 24 Hour Vital Signs Date Time Temp Pulse Resp B/P (MAP) Pulse Ox O2 Delivery O2 Flow Rate FiO2 01/07/20 09:00 Room Air 01/07/20 08:00 98.2 94 18 110/62 (78) 98 01/07/20 07:15 77 18 100 Room Air 21 70 18 97 01/07/20 07:15 77 18 99 Room Air 21 01/07/20 04:00 91 01/07/20 04:00 99.2 89 20 120/69 (86) 98 01/07/20 00:05 79 18 100 Room Air 21 74 18 98 01/07/20 00:00 98.4 86 20 114/69 (84) 99 01/07/20 00:00 85 01/06/20 21:00 Room Air 01/06/20 20:00 92 01/06/20 20:00 97.5 89 19 119/52 (74) 100 01/06/20 19:28 96 18 99 Room Air 21 01/06/20 19:26 98 18 100 Room Air 21 96 18 99 01/06/20 16:00 85 01/06/20 16:00 98.0 99 18 111/63 (79) 97 01/06/20 15:40 84 18 100 Room Air 21 83 18 100 01/06/20 12:00 97.7 98 18 128/78 (95) 95 01/06/20 12:00 94 01/06/20 10:29 81 20 100 Room Air 21 85 18 99 Height (Feet): 5 Height (Inches): 8.00 Weight (Pounds): 259 General Appearance: no acute distress HEENT: mucous membranes moist Respiratory/Chest: expiratory wheezing Cardiovascular: normal rate Abdomen: soft, non tender Extremities: no edema Neurologic/Psychiatric: alert, oriented x 3, responsive Microbiology Date/Time Source Procedure Growth Status 01/05/20 15:00 Blood Blood Culture - Preliminary NO GROWTH AFTER 24 HOURS Resulted 01/05/20 14:50 Blood Blood Culture - Preliminary NO GROWTH AFTER 24 HOURS Resulted 01/05/20 19:00 Sputum Expectorated Gram Stain - Final Resulted 01/05/20 19:00 Sputum Expectorated Sputum Culture Pending Resulted 01/04/20 22:09 Nasal Nares - Final Complete 01/04/20 22:09 Nasal Nares - Final Complete Current Medications Medications (Trade) Dose Ordered Sig/Roman Route PRN Reason Start Time Stop Time Status Last Admin Dose Admin Acetaminophen (Tylenol) 650 mg Q4H PRN ORAL Mild Pain/Temp > 100.5 01/05/20 00:15 02/04/20 00:14 Albuterol Sulfate (Proventil) 2.5 mg Q4H PRN HHN Shortness of Breath 01/05/20 00:15 01/10/20 00:14 Albuterol/ Ipratropium (Albuterol/ Ipratropium) 3 ml Q4HRT HHN 01/05/20 03:00 01/10/20 02:59 01/07/20 08:37 Ceftriaxone Sodium 2 gm/ Dextrose 55 ml @ 110 mls/hr DAILY IVPB 01/05/20 15:00 01/12/20 14:59 01/07/20 09:39 Oseltamivir Phosphate (Tamiflu) 75 mg TWICE A DAY ORAL 01/05/20 10:15 01/10/20 10:14 01/07/20 09:39 Khai Bravo MD Jan 07, 2020 10:07
--- NOTE | 2020-01-07 10:24 | NUR ---
*-* INSURANCE *-* ALL CLINICALS AND REVIEWS HAVE BEEN FAXED TO: CELY BELTRAN: JO P- [id number] [phone] X 1142 F- [phone]...........REVIEW/CLINICAL
--- NOTE | 2020-01-07 10:57 | Pulmonology Progress Note ---
Assessment/Plan Assessment/Plan IMPRESSION: 1. Acute influenza, bronchitis. 2. Asthma. DISCUSSION: Agree with steroids, empiric antibiotics, and Tamiflu. Continue oxygen. I will follow. Dc planning per PMD Ferny Mazariegos M.D. Subjective Interval Events: Feeling better Constitutional: Reports: no symptoms HEENT: Repors: no symptoms Respiratory: Reports: no symptoms Cardiovascular: Reports: no symptoms Gastrointestinal/Abdominal: Reports: no symptoms Allergies: Coded Allergies: No Known Allergies (Unverified , 01/04/20) Objective Last 24 Hour Vital Signs Date Time Temp Pulse Resp B/P (MAP) Pulse Ox O2 Delivery O2 Flow Rate FiO2 01/07/20 09:00 Room Air 01/07/20 08:00 88 01/07/20 08:00 98.2 94 18 110/62 (78) 98 01/07/20 07:15 77 18 100 Room Air 21 70 18 97 01/07/20 07:15 77 18 99 Room Air 21 01/07/20 04:00 91 01/07/20 04:00 99.2 89 20 120/69 (86) 98 01/07/20 00:05 79 18 100 Room Air 21 74 18 98 01/07/20 00:00 98.4 86 20 114/69 (84) 99 01/07/20 00:00 85 01/06/20 21:00 Room Air 01/06/20 20:00 92 01/06/20 20:00 97.5 89 19 119/52 (74) 100 01/06/20 19:28 96 18 99 Room Air 21 01/06/20 19:26 98 18 100 Room Air 21 96 18 99 01/06/20 16:00 85 01/06/20 16:00 98.0 99 18 111/63 (79) 97 01/06/20 15:40 84 18 100 Room Air 21 83 18 100 01/06/20 12:00 97.7 98 18 128/78 (95) 95 01/06/20 12:00 94 Intake and Output 01/06/20 01/07/20 19:00 07:00 Intake Total 340 ml Balance 340 ml Intake Oral 340 ml # Voids 3 2 General Appearance: no acute distress HEENT: normocephalic Respiratory/Chest: chest wall non-tender Cardiovascular: normal peripheral pulses Abdomen: normal bowel sounds Microbiology Date/Time Source Procedure Growth Status 01/05/20 15:00 Blood Blood Culture - Preliminary NO GROWTH AFTER 24 HOURS Resulted 01/05/20 14:50 Blood Blood Culture - Preliminary NO GROWTH AFTER 24 HOURS Resulted 01/05/20 19:00 Sputum Expectorated Gram Stain - Final Resulted 01/05/20 19:00 Sputum Expectorated Sputum Culture Pending Resulted 01/04/20 22:09 Nasal Nares - Final Complete 01/04/20 22:09 Nasal Nares - Final Complete Current Medications Medications (Trade) Dose Ordered Sig/Roman Route PRN Reason Start Time Stop Time Status Last Admin Dose Admin Acetaminophen (Tylenol) 650 mg Q4H PRN ORAL Mild Pain/Temp > 100.5 01/05/20 00:15 02/04/20 00:14 Albuterol Sulfate (Proventil) 2.5 mg Q4H PRN HHN Shortness of Breath 01/05/20 00:15 01/10/20 00:14 Albuterol/ Ipratropium (Albuterol/ Ipratropium) 3 ml Q4HRT HHN 01/05/20 03:00 01/10/20 02:59 01/07/20 08:37 Oseltamivir Phosphate (Tamiflu) 75 mg TWICE A DAY ORAL 01/05/20 10:15 01/10/20 10:14 01/07/20 09:39 Ferny Mazariegos MD Jan 07, 2020 10:56
[2020-01-07 12:00] VITALS: BP 92/54
[2020-01-07] MEDS ORDERED: Albuterol ud Inhalation HHN PRN (14:04)
--- NOTE | 2020-01-07 14:04 | NUR ---
TRANSFER TO FLOOR: Patient transferred to [facility]. Report given to GRICEL Narayan. Belongings and medications given.
[2020-01-07] MEDS ORDERED: Albuterol/Ipratropium 3ml neb HHN SCH (15:00)
--- NOTE | 2020-01-07 15:28 | NUR ---
CASE MANAGEMENT:REVIEW 01/07/20 SI: ACUTE INFLUENZA. BRONCHITIS. ASTHMA 98.2 83 18 92/54 98% ON RA IS;TAMIFLU PO BID DUONEB HHN Q4HRS RTC IV ROCEPHIN Q24 : TELEMETRY ....DOWNGRADE TO MED/SURG DCP: FROM HOME
[2020-01-07] MEDS ORDERED: ALBUTEROL2.5 MG/3 M INH (15:47)
[2020-01-07] MEDS ORDERED: PREDNISONE10 M2 PO (15:47)
[2020-01-07] MEDS ORDERED: FERROUS SULFAT325 MG ORAL (15:48)
[2020-01-07] MEDS ORDERED: FOLIC ACID1 MG ORAL (15:48)
--- NOTE | 2020-01-07 16:29 | NUR ---
NURSE NOTES: PT MADE AWARE OF DISCAHRGE ORDER. PT STATES SHE ALREADY SPOKE TO DR AYALA. RN EDUCATED PT ON DISCHARGE INSTRUCTIONS AND DISCHARGE MEDS. PT VERBALIZED UNDERSTANDING. IV ACCESS DISCONTINUED AND BELONGINGS CHECKED AT BEDSIDE. ALL BELONGINGS ACCOUNTED. PT DROVE HOME AND WAS DISCHARGED INSTABLE CONDITION.
[2020-01-07] MEDS ORDERED: D5W 550ml IV ONE (16:45)
[2020-01-07] MEDS ORDERED: Oseltamivir 75mg cap ORAL SCH (18:00)
--- NOTE | 2020-01-07 22:00 | Progress Note ---
DATE: 01/07/2020 This 44-year-old female came with acute asthma. The patient is clinically doing better. The patient was admitted for acute bronchitis and acute asthma. The patient was treated with IV steroid, IV antibiotic, and bronchodilator treatments. The patient clinically improving. Her short of breath is improved. The patient's hospital course was otherwise unremarkable. The patient had Pulmonary consult and clinically doing better. The patient also was found to have chronic anemia. The patient was going to go home with p.o. prednisone and going to have iron, folic acid, albuterol inhaler as needed. Edmundo Arguello M.D. DR: TREVA JOB#: [id number] CC:
--- NOTE | 2020-01-09 09:24 | Discharge Summary ---
Discharge Summary Discharge Summary _ DATE OF ADMISSION: 01/04/2020 DATE OF DISCHARGE: 01/07/2020 DISCHARGED BY: Dr. Arguello REASON FOR ADMISSION: 45 years old female with past medical history of asthma, presented to emergency department complaining of generalized weakness, fatigue, dyspnea, wheezing, fevers, chills and headache for 2 days. Vital signs revealed fever and tachycardia ; pulse oximetry was stable on room air . Shortly after initial evaluation patient was diagnosed with asthma exacerbation and influenza A and admitted for further management. Laboratory work-up revealed no leukocytosis , hemoglobin 8 , hematocrit 26.6 , platelet count 485. Stable electrolytes and renal parameters. Troponin negative. Influenza swab was positive for influenza A. Chest x-ray revealed no acute cardiopulmonary pathology CONSULTANTS: pulmonary Dr.Tirmizi [place] specialist Dr. Benedict [facility] COURSE: Patient admitted and started on Tamiflu and empiric antibiotic. Patient was placed on droplet isolation. Patient started on the IV steroids with tapering. Patient was found to be anemic with a hemoglobin 8 , hematocrit 26.6. Patient will need outpatient anemia work-up , including stool OB . Patient was started on folate acid and iron supplement. Patient was patient clinically stabilized and was ready for discharge home on Medrol Dosepak. Prescription for inhaler provided. Patient also will need to continue Tamiflu to complete the treatment. Patient received influenza and pneumococcal vaccine prior to discharge. FINAL DIAGNOSES: Sepsis with fever and tachycardia, resolving Influenza A upper respiratory infection Bronchitis Asthma exacerbation Anemia Obesity DISCHARGE MEDICATIONS: See Medication Reconciliation list. DISCHARGE INSTRUCTIONS: Patient was discharged home. Follow up with a primary care provider in a week. I have been assigned to dictate discharge summary for this account. I was not involved in the patient's management. Rody Dorantes NP Jan 09, 2020 09:24
--- NOTE | 2020-01-09 16:24 | NUR ---
*-* INSURANCE *-* DISCHARGE SUMMARY HAS BEEN FAXED TO: [facility]ELY BELTRAN: JO P- [id number] [id number] [phone] 1142 F- [phone]...........REVIEW/CLINICAL
== END 2020-01-07 16:46 | disposition home or self-care (01) | DRG 720 ==
LOC: EMR 17:53 → OBSVTOIN 22:02 → 2E 22:02 → EDBEDREQ 22:03 → 2E 01-05 06:12 → 4E 01-07 14:01
DX: A41.9 Sepsis, unspecified organism (principal); J45.901 Unspecified asthma with (acute) exacerbation; E66.8 Other obesity; Z68.39 Body mass index [BMI] 39.0-39.9, adult; J20.8 Acute bronchitis due to other specified organisms; J10.1 Influenza due to other identified influenza virus with other respiratory manifestations; Z23 Encounter for immunization; Z87.891 Personal history of nicotine dependence; E66.9 Obesity, unspecified
CPT/HCPCS: 36415; 71045; 71275; 80053; 83880; 84484; 85025; 85379; 86710; 86850; 86900; 86901; 87040; 87070; 87205; 93005; 94640; 94664; 96360; 96365; 99285; J7030; J7620